=== PATIENT | female | born 1985 | race Two or more races ===

== ENCOUNTER 2017-07-12 16:33 | Outpatient (CLI) | payer OTHER ==
[~2017-07-12] VITALS: Ht 167.6 cm; Wt 111.8 kg
[~2017-07-12 16:33] MED LIST: DOCU-131 PO; NITR100C56 PO; PREN1TAB69 PO
== END 2017-07-12 17:51 | disposition home or self-care (01) ==
LOC: LDOP 16:33
PROVIDERS: ATTEND Obstetrics & Gynecology
DX: O42.92 Full-term premature rupture of membranes, unspecified as to length of time between rupture and onset of labor (principal); Z3A.37 37 weeks gestation of pregnancy
CPT/HCPCS: 59025; 84112; 99201; G0463